=== PATIENT | female | born 1995 | race Caucasian/White ===

== ENCOUNTER 2021-09-20 16:02 | Observation (INO) | payer OTHER, SELFPAY ==
[2021-09-20 16:03] VITALS: BP 118/93; PULSE 92; RESP 16; TEMP 36.8; O2SAT 98
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
--- NOTE | 2021-09-20 16:58 | CT_ITS ---
Study: CT scan of the right calf without contrast. COMPARISON: None. HISTORY: Pain after trauma.A.Technique: Serial axial images of the right calf were obtained without contrast. Images were reformatted and viewed in coronal and sagittal planes. Individualized dose optimization techniques were used for this CT. FINDINGS: Acute minimally displaced spiral fracture of mid to distal tibial shaft is noted. The distal fracture fragment is displaced dorsally for approximately 0.7 cm. There is up to 0.8 cm foreshortening of the bone. A nondisplaced spiral fracture line extends to the distal tibial meta-epiphysis. There is no cortical depression of the tibial plafond at the level of the ankle joint. Medication, acute minimally displaced spiral fracture of proximal fibula metadiaphysis is noted. There is no soft tissue gas. No radiopaque foreign body is seen. Subtendinous bruising is noted around the right calf. CT/Extremity Lower without Contra IMPRESSION: Acute fractures of the right tibia and fibula as above. Electronically Signed: Michael Lou MD at 19:31 EDT ,
--- NOTE | 2021-09-20 17:16 | PCM.HP.STD ---
Documented by User: Nani Staley NP-C 09/20/21 17:32 HPI - General General Date of Admission: 09/20/21 Date of Service: 09/20/21 Chief Complaint: Right ankle injury HPI Narrative BOGDAN SPRINGER, is a 26 F who presents following a fall. Patient was seen by Dr. Watkins in his office where he stabilized the injury and sent her to the ER as she will need follow-up surgery. Patient's mother is at bedside patient only speaks Cameroonian, mother translating. 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 Patient has had underwent surgery on her kidneys for this condition as well as having chest tubes placed due to a collapsed lung. Patient has a seizure disorder as a result of her tuberous sclerosis affecting her brain. [facility] Medical History Seizures Home Medications lamotrigine 200 mg tablet (Lamictal) 300 mg PO BID 09/20/21 [History Last Taken Unknown] levetiracetam 250 mg tablet 250 mg PO BID 09/20/21 [History Last Taken 09/20/21] Allergy/AdvReac Type Severity Reaction Status Date / Time No Known Allergies Allergy Verified 09/20/21 16:35 Surgical History History of kidney surgery S/P chest tube placement Social History Smoking Status: Never smoker ROS Constitutional Constitutional: Denies anorexia, chills, fatigue, malaise or weakness Cardiovascular Cardiovascular: Denies chest pain, edema, palpitations or syncope Respiratory/Chest Respiratory/Chest: Denies cough, shortness of breath at rest, shortness of breath with exertion or wheezing Gastrointestinal Gastrointestinal: Denies abdominal pain, constipation, diarrhea, nausea or vomiting Genitourinary Genitourinary: Denies dysuria Musculoskeletal Musculoskeletal: Reports extremity pain and limited range of motion; Denies back pain Integumentary Integumentary: Denies dry skin Neurologic Neurologic: Denies abnormal gait, abnormal speech, confusion or dizziness Psychiatric Psychiatric: Denies anxiety or depression Endocrine Endocrinology: Denies change in body appearance Hematologic/Lymphatic Hematologic/Lymphatic: Denies anemia Vital Signs Vital Signs Vital Signs: 09/20/21 16:03 Temperature 98.2 F Temperature Source Temporal Pulse Rate 92 Respiratory Rate 16 Blood Pressure 118/93 H Blood Pressure Mean 101 Pulse Ox 98 Oxygen Delivery Method Room Air Weight Weight: 115 lb Body Mass Index (BMI) 0.0 Physical Exam Const alert and oriented x3 Constitutional Narrative: Patient does not speak Swedish only Cameroonian, mother at bedside translating General Appearance: cooperative HEENT normocephalic and head/scalp atraumatic Eyes conjunctivae normal and no scleral icterus Neck no lymphadenopathy and supple General: trachea midline Resp normal respiratory effort, normal air movement and clear to auscultation bilaterally Cardio regular rate, regular rhythm, S1 normal heart sound, S2 normal heart sound and peripheral pulses 2+ throughout GI normal to inspection, nondistended, normoactive bowel sounds, soft to palpation and non-tender Extremity normal capillary refill General Extremity: Negative for clubbing Peripheral Pulses: Yes pulses 2+ throughout Right Lower Extremity: ankle joint palpation (Tender), ROM (Limited due to injury as well as splinting) and neurovascular exam (Intact) Skin Skin Narrative: Patient has spots to bilateral hands that are a result of her tuberous sclerosis General Skin Exam: no breakdown Neuro no focal motor deficits and no sensory deficits noted Speech: speech normal Motor Exam: strength 5/5 throughout Psych thought process normal and cooperative Mood & Affect: anxious Results Lab / Micro Data Result Diagrams: 09/20/21 17:41 09/20/21 17:41 Assessment & Plan Assessment/Plan (1) Ankle fracture, right: (2) Seizures: (3) Tuberous sclerosis: PLAN: Plan 1. Right ankle injury -Admit to [facility] -Consult orthopedics, known to Dr. Watkins as he is on who referred her to the ER -Surgery planned for tomorrow morning -Regular diet, n.p.o. at midnight -Maintain splint to right leg -Graduated pain medication regimen ordered as needed -CBC and CMP pending -Lower Extremity CT pending 2. 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 Norman. 29 minutes spent in clinical coordination of patient's plan of care. Documented by User: Dr. Wu Norman DO 09/20/21 20:05 HPI - General General Date of Admission: 09/20/21 [facility] Medical History Seizures Home Medications lamotrigine 200 mg tablet (Lamictal) 300 mg PO BID 09/20/21 [History Last Taken Unknown] levetiracetam 250 mg tablet 250 mg PO BID 09/20/21 [History Last Taken 09/20/21] Allergy/AdvReac Type Severity Reaction Status Date / Time No Known Allergies Allergy Verified 09/20/21 16:35 Surgical History History of kidney surgery S/P chest tube placement Social History Smoking Status: Never smoker Results Lab / Micro Data Result Diagrams: 09/20/21 17:41 09/20/21 17:41 Assessment & Plan Assessment/Plan (1) Ankle fracture, right: (2) Seizures: (3) Tuberous sclerosis: Charges/Coding Addendum Addendum: Patient was seen and examined independently of Miryam Staley today, she came to the emergency room at the direction of her orthopedic physician who examined the patient today and advised going to the emergency room for admission due to unstable fracture of the right ankle. Patient suffered a fall yesterday. Patient is on Faith, she does not speak Swedish. Patient's mother is present during my examination, she has a history of seizure disorder since she was a child according to the mother. Patient appears to have some cognitive impairment. On examination she appeared younger than her stated age, she does not appear to be in any distress. Vital signs as documented. Skin warm and dry and without overt rashes. Neck without JVD, thyroid appears normal, trachea is midline, neck is supple. Lungs clear, normal air movement was noted. Heart exam notable for regular rhythm, normal sounds and absence of murmurs, rubs or gallops. Abdomen unremarkable and without evidence of organomegaly, masses, or abdominal aortic enlargement, bowel sounds are present in all 4 quadrants, no abdominal tenderness was noted. Extremities-patient's right lower leg was splinted, this was not removed for examination. Neuro: Cranial nerves II through XII are grossly intact, no focal motor deficits were noted, sensation to light touch and pinprick is intact, motor exam 5/5 throughout. Psych: Patient is alert and oriented x3, she does not appear anxious or depressed, she does not appear agitated. Patient had a CT of the right lower extremity performed which showed acute fractures of the right tibia and fibula Impression: Acute right tibia and fibula fracture-patient was placed in observation status on [facility], she will be seen by orthopedic surgery, it is planned that she will undergo surgery for stabilization of the right ankle tomorrow. PT and OT will see the patient. #2 seizure disorder-patient will remain on her home medications #3 cognitive impairment-makes recovery, care, and prognosis difficult #4 Tuberous sclerosis-complicates care, recovery, and prognosis. I have reviewed Miryam Staley's history and physical including her medical assessment and plan of care and with the above additions endorse it. Total clinical time spent by myself addressing the patient's issues, reviewing the data, and collaborating with patient's care team: 30 minutes Visit Charges OBSV E&M: [id number] Initial observation care L2
[2021-09-20 17:42] VITALS: BP 118/93; PULSE 92; RESP 16; TEMP 36.8; O2SAT 98
[2021-09-20 17:48] LABS: Absolute Lymphocyte Count 1.77 X10^3/uL (0.83-4.51); Absolute Neutrophil Count 3.4 X10^3/uL (2.0-7.7); Basophil# 0.03 X10^3/uL; Basophil% 0.5 % (0-1); Eosinophil# 0.03 X10^3/uL; Eosinophils% 0.5 % (0-5); Hematocrit 36.7 % (37-47); Hemoglobin 12.3 g/dL (12.0-15.0); Lymphocyte # 1.77 X10^3/ul (0.83-4.51); Mean Corp Hgb Conc 33.5 g/dL (32-36); Mean Corpuscular Hgb 29.3 pg (27.0-32.0); Mean Corpuscular Volume 87.4 fL (81-99); Mean Platelet Vol. 11.6 fl (6.2-12.0); Monocyte# 0.47 X10^3/uL; Monocyte% 8.2 % (0-10); NRBC Flagged by Analyzer 0 % (0-5); Neutrophil # 3.39 X10^3/uL (2.7-7.7); Neutrophil % 59.4 % (47-70); Platelet Count 202 K/mm3 (150-450); RBC Distribution Width CV 13.2 % (11.6-14.6); RBC Distribution Width SD 41.8 fl (35.1-43.9); White Blood Count 5.7 K/mm3 (4.4-11.0)
[2021-09-20 17:51] VITALS: BMI 18.5
[2021-09-20 17:55] VITALS: BP 127/95; PULSE 84; RESP 16; TEMP 37.1; O2SAT 98
[2021-09-20 17:57] LABS: International Normalized Ratio 1.1; Prothrombin Time (Protime)PT. 13.7 SECONDS (11.7-14.9)
[2021-09-20 19:21] LABS: ALB/GLOB Ratio 1.1 RATIO (0.9-2.4); AST(SGOT) 15 U/L (15-37); Alanine Aminotransfer ALT/SGPT 24 U/L (13-56); Albumin, Serum 3.9 g/dL (3.2-5.0); Alkaline Phosphatase 72 U/L (45-117); Anion Gap 10 (5-15); BUN 19 mg/dL (7-18); Calcium,Total 9.2 mg/dL (8.5-10.1); Chloride 110 mmol/L (98-107); Creatinine, Serum 0.83 mg/dL (0.55-1.02); EST Glomerular Filtration Rate 89 mL/min (>60); Est Glom Filt Rate - Afr Amer 108 mL/min (>60); Estimated Creatinine Clearance 77.53 ml/min; Globulin 3.7 g/dL (2.2-4.2); Glucose 91 mg/dL (74-106); Potassium 3.8 mmol/L (3.5-5.1); Protein, Total 7.6 g/dL (6.4-8.2); Sodium Level 139 mmol/L (136-145)
[2021-09-20 19:40] VITALS: O2SAT 98
[2021-09-20 21:51] VITALS: BP 108/74; PULSE 100; RESP 16; TEMP 37.1; O2SAT 99
[2021-09-21] VITALS (17 sets, daily range): BP systolic 112–154; BP diastolic 78–104; PULSE 89–101; RESP 14–18; TEMP 36.1–37.7; O2SAT 92–98; BMI 18.5
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
[2021-09-21] MEDS: levETIRAcetam 250 MG Tablet PO ×2 (08:05→19:43)
[2021-09-21] MEDS: lamoTRIgine 150 MG Tablet 300 MG PO ×2 (08:05→19:45)
[2021-09-21 08:59] LABS: Partial Thromboplast Time 27.4 Seconds (24.1-36.2)
[2021-09-21 11:00] LABS: Internal QC Validated? YES +Cl - CLEAR BKGD; Pregnancy, Serum, hCG Quali. NEGATIVE Negative
--- NOTE | 2021-09-21 12:08 | PN.HOSP_ITS ---
Documented by User: Nani Staley NP-C 09/21/21 12:11 Subjective Subjective Patient seen and examined. Patient lying in bed no distress noted Mom says that she wants the splint off. Objective Data Objective Data Vital Signs: Vital Signs Temp Pulse Resp BP Pulse Ox 97.0 F L 101 H 18 137/91 H 98 09/21/21 11:16 09/21/21 11:16 09/21/21 11:16 09/21/21 11:16 09/21/21 11:16 Oxygen Delivery Method Room Air Weight: 104 lb 8 oz Body Mass Index (BMI) 18.5 Intake & Output: Intake and Output for Last 24 Hours 09/19/21 09/20/21 09/21/21 23:59 23:59 23:59 Intake Total 0 / 0 120 / 120 Output Total 400 / 400 Balance 0 / 0 -280 / -280 Lab / Micro Data Result Diagrams: 09/20/21 17:41 09/20/21 17:41 Labs: Laboratory Results - last 24 hr 09/20/21 17:41: WBC 5.7, RBC 4.20, Hgb 12.3, Hct 36.7 L, MCV 87.4, MCH 29.3, MCHC 33.5, RDW Std Deviation 41.8, RDW Coeff of David 13.2, Plt Count 202, MPV 1 1.6, Immature Gran % (Auto) 0.400, Neut % (Auto) 59.4, Lymph % (Auto) 31.0, [place] % (Auto) 8.2, Eos % (Auto) 0.5, Baso % (Auto) 0.5, Absolute Neuts (auto) 3.4, Absolute Lymphs (auto) 1.77, Nucleated RBC % 0 09/20/21 17:41: Sodium 139, Potassium 3.8, Chloride 110 H, Carbon Dioxide 19.0 L , Anion Gap 10, BUN 19 H, Creatinine 0.83, Estim Creat Clear Calc 77.53, Est GFR (MDRD) Af Amer 108, Est GFR (MDRD) Non-Af 89, BUN/Creatinine Ratio 23.0 H, Glucose 91, Calcium 9.2, Total Bilirubin 0.40, AST 15, ALT 24, Alkaline Phosphatase 72, Total Protein 7.6, Albumin 3.9, Globulin 3.7, Albumin/Globulin Ratio 1.1 09/20/21 17:41: PT 13.7, INR 1.1 09/20/21 17:41: Serum , Qual NEGATIVE 09/21/21 07:48: APTT 27.4 Radiography Diagnostic Testing: Radiology Impression Lower Extremity CT 09/20/21 16:58 IMPRESSION: Acute fractures of the right tibia and fibula as above. Electronically Signed: Michael Lou MD at 19:31 EDT , Physical Exam Const alert and oriented x3 Constitutional Narrative: Patient does not speak [place]i only French, mother at bedside translating General Appearance: cooperative HEENT normocephalic and head/scalp atraumatic Eyes conjunctivae normal and no scleral icterus Neck no lymphadenopathy and supple General: trachea midline Resp normal respiratory effort, normal air movement and clear to auscultation bilaterally Cardio regular rate, regular rhythm, S1 normal heart sound, S2 normal heart sound and peripheral pulses 2+ throughout GI normal to inspection, nondistended, normoactive bowel sounds, soft to palpation and non-tender Extremity normal capillary refill General Extremity: Negative for clubbing Right Lower Extremity: ankle joint palpation (Tender), ROM (Limited due to injury as well as splinting) and neurovascular exam (Intact) Skin Skin Narrative: 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 Right ankle injury -Consult orthopedics, known to Dr. Watkins as he is on who referred her to the ER -Surgery planned09/21/21 -n.p.o. at midnight -Maintain splint to right leg -Graduated pain medication regimen ordered as needed 2. 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 Norman. 12 minutes spent in clinical coordination of patient's plan of care. Documented by User: Dr. Wu Norman, 09/21/21 12:28 Objective Data Lab / Micro Data Result Diagrams: 09/20/21 17:41 09/20/21 17:41 Assessment & Plan Assessment/Plan (1) Ankle fracture, right: (2) Seizures: (3) Tuberous sclerosis: Charges/Coding Addendum Addendum: Patient was seen and examined independently of Miryam Staley, she appears stable for surgery at this time-surgery is planned for this afternoon. Her mother is in the room and has no questions about the procedure. On examination she appeared younger than her stated age, she does not appear to be in any distress. Vital signs as documented. Skin warm and dry and without overt rashes. Neck without JVD, thyroid appears normal, trachea is midline, neck is supple. Lungs clear, normal air movement was noted. Heart exam notable for regular rhythm, normal sounds and absence of murmurs, rubs or gallops. Abdomen unremarkable and without evidence of organomegaly, masses, or abdominal aortic enlargement, bowel sounds are present in all 4 quadrants, no abdominal tenderness was noted. Extremities nonedematous, no cyanosis was noted, no clubbing was noted. Neuro: Cranial nerves II through XII are grossly intact, no focal motor deficits were noted, sensation to light touch and pinprick is int act, motor exam 5/5 throughout. Psych: Patient is alert, she has cognitive impairment, she does not speak [place]i but says a few words in French. Impression: #1 displaced spiral fracture of the shaft of the right tibia, right fibular fracture-patient is being seen by orthopedic surgery, she will go to surgery today #2 Tuberous sclerosis-complicates care recovery and prognosis #3 chronic seizure disorder-patient will remain on her current seizure medications and she will be monitored. I have reviewed Miryam Staley's progress note including her medical assessment and plan of care and with the above additions endorse it. Total clinical time spent by myself addressing patient's medical issues, reviewing the medical data, and collaborating with patient's care team: 23 minutes Visit Charges Inpatient E&M: 00304 Subs Hosp L3
--- NOTE | 2021-09-21 12:38 | NURSING ---
lab notified of Dr. Norman's request regarding lab levels pending.
[2021-09-21] MEDS: Cefazolin 2 GM in 0.9% Normal Saline 100 ML IV (13:25)
--- NOTE | 2021-09-21 13:45 | RAD_ITS ---
STUDY: INTRAOPERATIVE FLUOROSCOPY TECHNIQUE: The examination was performed with referring physician in attendance. Under fluoroscopic observation, fluoroscopic images were obtained. Radiologist was not present for the study. Radiologist did not perform the procedure. This dictation is for documentation of the radiation dosage only. There is no interpretation of the images. TOTAL NUMBER OF IMAGES: 1 COMPARISON: None RADIATION DOSE: 3 mGy FLUOROSCOPY TIME: 90 seconds REASON FOR EXAM: TIBIA NAILING Female, 26 years old. FINDINGS: Placement of a tibial intramedullary daquan. RAD/Tibia & Fibula 2 Views IMPRESSION: Fluoroscopic assistance images were obtained. Dictation for documentation purposes only. Electronically Signed: Cristopher Alvarez MD at 16:33 EDT ,
[2021-09-21] MEDS: Bupivacaine Mpf 0.5% 30 ML VIAL (15:31)
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
--- NOTE | 2021-09-21 19:34 | CPS ---
Patient family member at bedside states that patient will not be able to complete the IS. RT encouraged deep breathing exercise without the use of the IS if patient is able to help prevent pneumonia during recovery.
[2021-09-21] MEDS: Aspirin 81 MG TAB.CHEW PO (19:43)
[2021-09-21] MEDS: Cefazolin 1 GM/50 ML BAG IV (21:56)
[2021-09-21] MEDS: Acetaminophen 325 MG Tablet 650 MG PO (22:08)
[2021-09-22 04:00] VITALS: BP 152/100; PULSE 100; RESP 16; TEMP 36.8; O2SAT 96
[2021-09-22] MEDS: Cefazolin 1 GM/50 ML BAG IV (05:41)
--- NOTE | 2021-09-22 07:39 | PCM.PN.ORT ---
Subjective Subjective Patient seen and examined at bedside this morning. Mother at bedside. Mother states she had a slight fever overnight otherwise she describes the night is uneventful. Review of systems unobtainable due to cognition. Objective Data Objective Data Vital Signs: Vital Signs Temp Pulse Resp BP Pulse Ox 98.2 F 100 16 152/100 H 96 09/22/21 04:00 09/22/21 04:00 09/22/21 04:00 09/22/21 04:00 09/22/21 04:00 Oxygen Delivery Method Room Air Weight: 104 lb 8 oz Body Mass Index (BMI) 18.5 Intake & Output: Intake and Output for Last 24 Hours 09/20/21 09/21/21 09/22/21 23:59 23:59 23:59 Intake Total 0 / 0 280 / 280 Output Total 400 / 400 450 / 450 Balance 0 / 0 -120 / -120 -450 / -450 Lab / Micro Data Attestation: I reviewed the patient's lab results. Result Diagrams: 09/20/21 17:41 09/20/21 17:41 Labs: Laboratory Results - last 24 hr 09/20/21 17:41: Serum , Qual NEGATIVE 09/21/21 07:48: APTT 27.4 09/21/21 07:48: Lamotrigine Cancelled, Levetiracetam Cancelled Radiography Diagnostic Testing: Radiology Impression Tibia/Fibula X-Ray 09/21/21 13:45 IMPRESSION: Fluoroscopic assistance images were obtained. Dictation for documentation purposes only. Electronically Signed: Cristopher Alvarez MD at 16:33 EDT Reading Location ID and State: [facility] / [place] , Service support , Physical Exam Narrative General -alert, appears comfortable, NAD. VSS/AF Right lower extremity -incisional dressing shows dried sanguinous drainage distally, otherwise clean dry and intact. DP, PT 2+. BCR. DF, PF, EHL 5/5. No calf TTP. Limited sensation exam due to cognition Assessment & Plan Assessment/Plan (1) Displaced spiral fracture of shaft of right tibia, initial encounter for closed fracture: PLAN: POD#1 s/p right tibia intramedullary nailing, percutaneous ankle fixation - Pain control - Medicine following for medical management - PT/OT-weightbearing as tolerated right lower extremity - DVT PPX -aspirin 81 mg twice daily, mobilization - Case management - D/C planning -Patient appears comfortable this morning. PT/OT ordered. Anticipate discharge home with family today. Plan to follow-up in 2 weeks in my office for staple removal and x-rays. Continue aspirin 81 mg twice daily upon discharge. Daily dry sterile dressing changes. I recommended keeping the incisions covered so the patient does not pick at her wounds and jah. Okay to shower postoperative day #3, no tub soaks.
[2021-09-22 09:03] VITALS: BP 129/95; PULSE 97; RESP 18; TEMP 37; O2SAT 98
[2021-09-22] MEDS: lamoTRIgine 150 MG Tablet 300 MG PO (09:04)
[2021-09-22] MEDS: Aspirin 81 MG TAB.CHEW PO (09:04)
[2021-09-22] MEDS: levETIRAcetam 250 MG Tablet PO (09:04)
[2021-09-22] MEDS: Acetaminophen 325 MG Tablet 650 MG PO (09:05)
[2021-09-22] MEDS: 0.9% Saline Lock 10 ML Syringe IV (09:11)
--- NOTE | 2021-09-22 09:34 | DCINST_ITS ---
Discharge Instructions Diet Discharge Diet: No restrictions Activity Discharge Activity: Use Walker and Use Crutches May shower in (days): 2 Weight Bearing Status: Weight bearing as tolerated Dressing / Incision Call your doctor if your incision/area has: Continuous Slow Oozing, Sudden Increased Bleeding, Increased Pain/ Swelling, Increased Redness, Foul Smelling Discharge and Swelling at the incision site Change Dressing in: daily Cleanse incision/area with: Soap & Water Follow Up Care Please Follow Up With: Reji Watkins DO When: 2 weeks Test Results: Test results from this visit will be discussed in further detail at your follow- up appointment, if applicable. Discharge Plan Admission Admit Date/Time: 09/21/21 16:04 Primary Reason for Your Visit: Spitral fx of right tibia Attending Provider: Wu Norman Primary Care Provider: ARASH PALACIOS Consulting Providers: Reji Watkins Instructions Additional Instructions / Restrictions: Wound care: No tub soaks until follow-up. Okay to shower postoperative day #3. Cover incisions with dry sterile dressing change daily. Weightbearing as tolerated right leg. Continue aspirin 81 mg twice daily upon discharge. Discharge Orders/Prescriptions Prescriptions: New acetaminophen [Tylenol] 325 mg Tablet 650 mg PO Q6H PRN PRN (Reason: Pain Score 1-10/Temp > 100.7 F) Qty: 0 0RF aspirin 81 mg Tablet,Chewable 81 mg PO BIDCM Qty: 0 0RF Continued lamotrigine [Lamictal] 200 mg Tablet 300 mg PO BID levetiracetam 250 mg tablet 250 mg PO BID Label Comments: TAKE 1 TABLET BY MOUTH TWICE DAILY Referrals / Follow Up: ARASH PALACIOS [Other] Reji Watkins DO [STAFF PHYSICIAN] - 10/08/21 Disposition Disposition (needs filled in before D/C Order can be placed): Home, Self Care
--- NOTE | 2021-09-22 09:37 | PCM.DC.SUM ---
Documented by User: CLAUDIA Soto 09/22/21 09:43 Providers Date of Admission: 09/21/21 Date of Discharge: 09/22/21 Primary Care Physician: ARASH PALACIOS Consultations 09/20/21 17:54 Consult: Orthopedics Routine Consulting Provider: Reji Watkins Reason for Consult: Right Ankle Fracture EMERGENT Consult: No MD Notified: Yes Date Notified: 09/20/21 Time Notified: 17:27 Method of Notification: referred from office Reason For Visit: MEDICAL CLEARANCE FOR ANKLE FRACTURE Diagnosis Discharge Diagnosis (1) Displaced spiral fracture of shaft of right tibia, initial encounter for closed fracture: Status: Acute Code(s): S82.241A - Displaced spiral fracture of shaft of right tibia, initial encounter for closed fracture Plan 1. Right ankle injury -Consult orthopedics, known to Dr. Watkins as he is on who referred her to the ER -Surgery planned09/21/21 -n.p.o. at midnight -Maintain splint to right leg -Graduated pain medication regimen ordered as needed 2. 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 Norman. 12 minutes spent in clinical coordination of patient's plan of care. Medications at Discharge Home Medications lamotrigine 200 mg tablet (Lamictal) 300 mg PO BID 09/20/21 levetiracetam 250 mg tablet 250 mg PO BID 09/20/21 acetaminophen 325 mg tablet (Tylenol) 650 mg PO Q6H PRN PRN Pain Score 1-10/Temp > 100.7 F #0 tabs 09/22/21 aspirin 81 mg chewable tablet 81 mg PO BIDCM #0 tabs 09/22/21 Hospital Course Operations - (right tibia intramedullary nailing, percutaneous ankle fixation) Procedures None Summary of Care Provided Minutes Spent on Discharge: 35 Hospital Course: Patient is a 26-year-old female who initially presented with a right tibia fracture. Patient was stepping off the buggy when her foot got caught in her dress and she fell and reported extreme right ankle pain. 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 Patient only speaks Tunisian, mother at bedside to translate. Patient will be discharged home with instructions to follow-up with Dr. Watkins in 2 weeks. Patient will be continued on aspirin 81 mg twice daily as well as as needed Tylenol for pain management. Patient will be discharged following PT and OT evaluations to assist with use of crutches and walker. Dr. Watkins recommends that incisions be covered to the patient does not pick at her wounds and jah. Physical Exam Const alert and oriented x3 Constitutional Narrative: Patient does not speak French only Tunisian, mother at bedside translating General Appearance: cooperative HEENT normocephalic and head/scalp atraumatic Eyes conjunctivae normal and no scleral icterus Neck no lymphadenopathy and supple General: trachea midline Resp normal respiratory effort, normal air movement and clear to auscultation bilaterally Cardio regular rate, regular rhythm, S1 normal heart sound, S2 normal heart sound and peripheral pulses 2+ throughout GI normal to inspection, nondistended, normoactive bowel sounds, soft to palpation and non-tender Extremity normal capillary refill General Extremity: Negative for clubbing Right Lower Extremity: ankle joint palpation (Tender), ROM (Limited due to injury as well as splinting) and neurovascular exam (Intact) Skin Skin Narrative: Patient has spots to bilateral hands that are a result of her tuberous sclerosis General Skin Exam: no breakdown Neuro no focal motor deficits and no sensory deficits noted Speech: speech normal Motor Exam: strength 5/5 throughout Psych thought process normal and cooperative Mood & Affect: anxious Weight / BMI Weight Weight: 104 lb 8 oz Body Mass Index (BMI) 18.5 ABG / Lab / Microbiology Data Result Diagrams: 09/20/21 17:41 09/20/21 17:41 Laboratory: Laboratory Results - last 24 hr 09/20/21 17:41: Serum , Qual NEGATIVE 09/21/21 07:48: Lamotrigine Cancelled, Levetiracetam Cancelled Radiography Diagnostic Testing: Radiology Impression Tibia/Fibula X-Ray 09/21/21 13:45 IMPRESSION: Fluoroscopic assistance images were obtained. Dictation for documentation purposes only. Electronically Signed: Cristopher Alvarez MD at 16:33 EDT Reading Location ID and State: [facility] / [place] , Service support , D/C Instructions Discharge Diet: No restrictions May shower in (days): 2 Weight Bearing Status: Weight bearing as tolerated Call your doctor if your incision/area has: Continuous Slow Oozing, Sudden Increased Bleeding, Increased Pain/ Swelling, Increased Redness, Foul Smelling Discharge and Swelling at the incision site Cleanse incision/area with: Soap & Water Please Follow Up With: Reji Watkins DO When: 2 weeks Meaningful Use Info Meaningful Use Diagnoses (Choose all that apply): None applicable Discharge Plan Admission Admit Date/Time: 09/21/21 16:04 Primary Reason for Your Visit: Spitral fx of right tibia Attending Provider: Wu Norman Primary Care Provider: ARASH PALACIOS Consulting Providers: Reji Watkins Instructions Additional Instructions / Restrictions: Wound care: No tub soaks until follow-up. Okay to shower postoperative day #3. Cover incisions with dry sterile dressing change daily. Weightbearing as tolerated right leg. Continue aspirin 81 mg twice daily upon discharge. Discharge Orders/Prescriptions Prescriptions: New acetaminophen [Tylenol] 325 mg Tablet 650 mg PO Q6H PRN PRN (Reason: Pain Score 1-10/Temp > 100.7 F) Qty: 0 0RF aspirin 81 mg Tablet,Chewable 81 mg PO BIDCM Qty: 0 0RF Continued lamotrigine [Lamictal] 200 mg Tablet 300 mg PO BID levetiracetam 250 mg tablet 250 mg PO BID Label Comments: TAKE 1 TABLET BY MOUTH TWICE DAILY Referrals / Follow Up: ARASH PALACIOS [Other] Reji Watkins DO [STAFF PHYSICIAN] - 10/08/21 Disposition Disposition (needs filled in before D/C Order can be placed): Home, Self Care Documented by User: Dr. Wu Norman DO 09/23/21 17:36 Providers Date of Admission: 09/21/21 Reason For Visit: MEDICAL CLEARANCE FOR ANKLE FRACTURE Diagnosis Discharge Diagnosis (1) Displaced spiral fracture of shaft of right tibia, initial encounter for closed fracture: Status: Acute Code(s): S82.241A - Displaced spiral fracture of shaft of right tibia, initial encounter for closed fracture Medications at Discharge Home Medications lamotrigine 200 mg tablet (Lamictal) 300 mg PO BID 09/20/21 levetiracetam 250 mg tablet 250 mg PO BID 09/20/21 acetaminophen 325 mg tablet (Tylenol) 650 mg PO Q6H PRN PRN Pain Score 1-10/Temp > 100.7 F #0 tabs 09/22/21 aspirin 81 mg chewable tablet 81 mg PO BIDCM #0 tabs 09/22/21 ABG / Lab / Microbiology Data Result Diagrams: 09/20/21 17:41 09/20/21 17:41 Discharge Plan Admission Admit Date/Time: 09/21/21 16:04 Primary Reason for Your Visit: Spitral fx of right tibia Attending Provider: Wu Norman Primary Care Provider: ARASH PALACIOS Consulting Providers: Reji Watkins Instructions Additional Instructions / Restrictions: Wound care: No tub soaks until follow-up. Okay to shower postoperative day #3. Cover incisions with dry sterile dressing change daily. Weightbearing as tolerated right leg. Continue aspirin 81 mg twice daily upon discharge. Discharge Orders/Prescriptions Prescriptions: New acetaminophen [Tylenol] 325 mg Tablet 650 mg PO Q6H PRN PRN (Reason: Pain Score 1-10/Temp > 100.7 F) Qty: 0 0RF aspirin 81 mg Tablet,Chewable 81 mg PO BIDCM Qty: 0 0RF Continued lamotrigine [Lamictal] 200 mg Tablet 300 mg PO BID levetiracetam 250 mg tablet 250 mg PO BID Label Comments: TAKE 1 TABLET BY MOUTH TWICE DAILY Referrals / Follow Up: ARASH PALACIOS [Other] Reji Watkins DO [STAFF PHYSICIAN] - 10/08/21 Disposition Disposition (needs filled in before D/C Order can be placed): Home, Self Care Charges/Coding Addendum Addendum: Patient was seen and examined on 09/22/2021 independently of Miryam Staley, her mother was in the room at the time of my examination. On examination she appeared in good health and spirits, she does not appear to be in any distress. Vital signs as documented. Skin warm and dry and without overt rashes. Neck without JVD, thyroid appears normal, trachea is midline, neck is supple. Lungs clear, normal air movement was noted. Heart exam notable for regular rhythm, normal sounds and absence of murmurs, rubs or gallops. Abdomen unremarkable and without evidence of organomegaly, masses, or abdominal aortic enlargement, bowel sounds are present in all 4 quadrants, no abdominal tenderness was noted. Extremities nonedematous, no cyanosis was noted, no clubbing was noted. There was a cast over the patient's right lower leg. Neuro: Cranial nerves II through XII are grossly intact, no focal motor deficits were noted, sensation to light touch and pinprick is intact, motor exam 5/5 throughout. Psych: Patient is alert and oriented x3, she does not appear anxious or depressed, she does not appear agitated. On 09/22/2021, patient appeared medically stable for discharge. Impression: #1 displaced spiral fracture of the shaft of the right tibia #2 right fibular fracture #3 Tuberous sclerosis #4 chronic seizure disorder I have reviewed Miryam Staley's discharge summary including her medical assessment and plan of care and endorse it with the above additions. Total clinical time spent by myself addressing the patient's medical issues, reviewing the data, and collaborating with patient's care team: 25 minutes Visit Charges OBSV E&M: [id number] Observation care discharge
[2021-09-22 09:51] VITALS: O2SAT 98
--- NOTE | 2021-09-22 10:25 | CASEMGMT ---
RN ANDREW MANAGER INSTRUMENTATION CM to room to meet with pt's mom for initial transition planning/care coordination assessment. RN ANDREW introduced self and role at [facility].? Mom voices understanding and consents to assessment at this time.? Pt resting in bed in no distress at this time, sleeping. Pt w/cognitive delays. Mom states she functions @ a 6-yr-old level. Pt speaks Australian/understands minimal Citizen [place]. Care providers, pharmacy, and demographics verified w/mom. PCP: Dr Tai Schmitt Specialists:[facility]. Mom does not remember name. Preferred Pharmacy: [facility] Retail Insurance: [employer] Prescription Benefit:?none LNOK: Parents, Elton and Chiqui Living Arrangements: Lives w/parents and 5 siblings. Parents and 2 children able to help. Pt able to feed self and ambulated w/out DME @ baseline prior to ankle fx. Pt needs assist w/bathing and dressing @ baseline. Parents/family also provide all other care. Transportation:?Hire drivers DME: Pt uses no DME. DME needs TBD. PT/OT evals pending. As [facility] completing assessment, therapy came into room to do assessment. Mother wishes to take pt home @ d/c and states is able to care for pt w/assist of other family members in the home. CM to follow for further discharge planning/needs.? Mom voices no further concerns/needs at this time.? Advised her to ask for CM if any further questions/concerns/needs arise.? Voices understanding. PLAN:??Home w/family support and discharge plans in place. DME and HHC needs TBD. PT/OT evals pending. Mina MONTENEGRO RN, CM
--- NOTE | 2021-09-22 12:10 | CASEMGMT ---
Addendum entered by Yasmin Burton 09/22/21 13:59: Updated ortho on HHC, ok for pt to follow up in office regarding formal PT at visit in 2wks. Pt mother aware. 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 Addendum entered by Yasmin Burton 09/22/21 13:28: Received tc back from [facility]. They bill in 15 min increments and differently for a PT vs SERVICE CLERK. Their visit cost would be approx $150-200 per hour. [facility] charge $100/visit. Made pt mother aware of this. She states that this is too expensive for them and asks if they can do therapy at home. Addendum entered by Yasmin Burton 09/22/21 12:32: Pt mother has chosen [facility] 1. [facility], 2. [facility] 3. [facility]. TC to [facility], they do not take self pay. TC to [facility], they do take self pay and could accept but will call [facility] back to give the per visit cost. TC to [facility] and left message with intake for the cost and availability. Original Note: Discussed with ortho pt need for HHC therapy upon dc. RN CM in to pt room, pt lying in bed in no distress, mother at bedside. Mother states they will obtain a FWW from their community. She does not want RN ANDREW to set this up prior to dc. Patient/mother was provided a list of C providers including quality and resource use data and consistent with the patient?s preferred geographic region, medical needs, and insurance network. Pt mother to review and [facility] to check back.
== END 2021-09-22 14:07 | disposition home or self-care (01) ==
LOC: ED 17:00 → MS3 09-21 06:20
PROVIDERS: Anesthesiology; Nurse Practitioner Family; Student in an Organized Health Care Education/Training Program; Admitting Provider Internal Medicine; Emergency Provider Emergency Medicine; Visit Provider Internal Medicine
PROC: (CPT 27756; principal; 2021-09-21 12:40)
DX: S82.241A Displaced spiral fracture of shaft of right tibia, initial encounter for closed fracture (principal); G40.909 Epilepsy, unspecified, not intractable, without status epilepticus; Q85.1 Tuberous sclerosis; R41.89 Other symptoms and signs involving cognitive functions and awareness; W17.89XA Other fall from one level to another, initial encounter; Y93.39 Activity, other involving climbing, rappelling and jumping off; Y99.9 Unspecified external cause status; Y92.9 Unspecified place or not applicable; Z79.899 Other long term (current) drug therapy; S82.401A Unspecified fracture of shaft of right fibula, initial encounter for closed fracture
CPT/HCPCS: 27756; 27759; 01480; 36415; 73590; 73700; 76000; 80053; 80177; 82542; 84703; 85025; 85610; 85730; 96365; 96366; 97162; 97166; 99218; 99284; C1713; J7040; J7120; A4216; G0378